=== PATIENT | male | born 1955 | race Caucasian/White ===

== ENCOUNTER 2024-12-10 14:49 | Inpatient (IN) ==
--- NOTE | 2024-12-10 15:07 | Emergency Department Note ---
Impression & Plan Acute appendicitis Admission ED Provider Note HPI: History obtained from patient. The patient is a 69-year-old gentleman with history of GERD, type 2 diabetes, chronic kidney disease, hypertension, hyperlipidemia, presents the emergency department today with chief complaint right-sided abdominal pain. Patient states he has had this pain for the past day. Patient states he has also had nausea but he denies any vomiting. On arrival here to the ED the patient is mildly hypertensive but otherwise hemodynamically stable, he otherwise appears to be in no acute distress. Patient denies any chest pain or shortness of breath. ROS: - Per HPI Differential Diagnosis: Acute cholecystitis, choledocholithiasis, kidney stone, pyelonephritis, diverticulitis, acute appendicitis, viral gastroenteritis, amongst other potential pathologies. *Outpatient medications and allergy history reviewed. 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 Lab work shows a mild leukocytosis of 15.3, hemoglobin is stable at 18.3, platelet count is normal, CMP does not show any evidence of any critical findings. Urinalysis shows 2+ ketones, no evidence of infection. CT imaging of the abdomen pelvis with IV contrast is suggestive of acute appendicitis without perforation or abscess. I was able to discuss the patient's presentation with on-call general surgery, Dr. Riley, as he was here in the emergency department. General surgery evaluated the patient and the patient was determined appropriate for urgent operative intervention. Patient was transported to the operating room in stable condition for further management. Consultants/Discussions held with other healthcare providers: - General Surgery, Dr. Riley Disposition discussion held by myself with: - Patient and at bedside Diagnosis: 1. Acute appendicitis 2. Abdominal pain, acute 3. Leukocytosis, acute Disposition: Admission Jay Jay Garsia DO Emergency Medicine Past Med/Surg History Problem List (Updated 12/10/24 @ 17:53 by Jay Jay Garsia DO) Acute appendicitis (Acute) Mild cognitive impairment Peripheral neuropathy Type 2 diabetes with nephropathy Chronic low back pain GERD (gastroesophageal reflux disease) Hearing difficulty Chronic kidney disease Degenerative disc disease, lumbar Degenerative disc disease, cervical HLD (hyperlipidemia) HTN (hypertension) Medical History Stomach ulcer Kidney stones Carpal tunnel syndrome Surgical History H/O neck surgery History of hip replacement right H/O arthroscopy of shoulder H/O carpal tunnel repair Hx of tonsillectomy H/O hernia repair 1954 Family History Father Myocardial infarction Pancreatic cancer Diabetes Heart disease Hypertension Uncle Alcohol abuse Aunt Alcohol abuse Mother Diabetes Heart disease Hypertension Kidney disease Lung disease Sister Diabetes Gall bladder disease History of parathyroid surgery Denies family history of Ovarian cancer Prostate cancer Breast cancer Colorectal cancer Social History Smoking Status: Never smoker Second Hand Exposure: No; Do You Dip or Chew Tobacco: No; Hx Alcohol Use: Yes Hx Substance Use: No Preferred Language: Brazilian Visual Impairment: No Limitations Hearing Ability: Use of Hearing Aid Beliefs That Will Affect Care: None marital status: Current Living Situation: Spouse current occupational status: retired Feels Safe at Home: Yes Diet: low carbohydrate during the past year weight has: remained stable Physical Activity Frequency: Other Physical Activity Frequency Comment: limited due to physical condition Seatbelt Use: always Sunscreen Use: No Allergies Allergies Allergy/AdvReac Type Severity Reaction Status Date / Time codeine Allergy Verified 11/18/24 09:57 cyclobenzaprine Allergy Verified 11/18/24 09:57 erythromycin base Allergy Verified 11/18/24 09:57 Sulfa (Sulfonamide Allergy Verified 11/18/24 09:57 Antibiotics) NSAIDS (Non-Steroidal AdvReac Verified 11/18/24 09:57 Anti-Inflamma tramadol Allergy Uncoded 11/18/24 09:57 Home Meds Home Medications Medication Instructions Recorded Confirmed aspirin 81 mg tablet,delayed 81 mg PO DAILY 04/30/24 12/10/24 release magnesium citrate 1,800 - 2,200 mg PO DAILY PRN when 04/30/24 12/10/24 low multivitamin 1 tab PO DAILY 04/30/24 12/10/24 cholecalciferol (vitamin D3) 50 100 mcg PO DAILY 11/18/24 12/10/24 mcg (2,000 unit) capsule insulin aspart U-100 100 unit/mL 10 unit subcut TID 11/18/24 12/10/24 (3 mL) subcutaneous pen insulin degludec 100 unit/mL (3 10 unit subcut DAILY 11/18/24 12/10/24 mL) subcutaneous pen (Tresiba FlexTouch U-100 insulin) Previous Rx's Medication Instructions Recorded atorvastatin 40 mg tablet 40 mg PO DAILY #90 tabs 04/30/24 glimepiride 4 mg tablet 4 mg PO DAILY #90 tabs 04/30/24 losartan 100 mg tablet 100 mg PO DAILY #90 tabs 04/30/24 omeprazole 40 mg capsule,delayed 40 mg PO DAILY #90 caps 04/30/24 release oxycodone-acetaminophen 5 mg-325 1 tab PO Q12H PRN pain #60 tabs 05/20/24 mg tablet empagliflozin 10 mg tablet 10 mg PO DAILY #30 tabs 10/21/24 (Jardiance) duloxetine 60 mg capsule,delayed 60 mg PO DAILY #90 caps 11/18/24 release Results & Data (ED) Vital Signs Vital Signs - 24 hr 12/10/24 14:51 12/10/24 16:54 12/10/24 17:16 Temperature 36.1 C L 37.1 C Temperature Source Temporal Artery Scan Oral Pulse Rate 96 H 105 H Pulse Rate [Apical] 103 H Pulse Rhythm [Apical] Regular Pulse Strength [Apical] Normal Respiratory Rate 20 20 23 Respiratory Effort / Characteristics Non-Labored Spontaneous Non-Labored Spontaneous Respiratory Depth Normal Normal Respiratory Pattern Regular Regular Blood Pressure 148/91 H 160/107 H Blood Pressure [Left Arm] 177/112 H Blood Pressure Mean 110 Blood Pressure Mean [Left Arm] 133 Blood Pressure Position [Left Arm] Semi-fowlers Pulse Oximetry 99 98 98 Oxygen Delivery Method Room Air Room Air Room Air Sepsis Recent Fever Within 48 Hours No Sepsis New/Unexplained Change in Mental Status N/A Sepsis Action Taken by Nursing No Action Required Laboratory Data 12/10/24 15:06 12/10/24 15:06 Lab Results 12/10/24 12/10/24 12/10/24 Range/Units 15:06 15:10 17:29 WBC 15.33 H (4.8-10.8) K/ul RBC 5.77 (4.70-6.10) M/uL Hgb 18.3 H (14.0-18.0) g/dl Hct 52.5 H (42.0-52.0) % MCV 91.0 (80.0-100.0) fL MCH 31.7 (25.0-34.0) pg MCHC 34.9 (32.0-36.0) g/dL RDW Std Deviation 42.6 (36.4-46.3) fL RDW Coeff of Sandra 12.7 (11.5-14.5) % Plt Count 284 (130-400) K/uL MPV 8.9 L (9.4-12.4) fL Immature Gran % (Auto) 0.6 % Neut % (Auto) 79.0 % Lymph % (Auto) 10.3 % [place] % (Auto) 8.6 % Eos % (Auto) 1.0 % Baso % (Auto) 0.5 % Neut # (Auto) 12.11 H (1.40-6.50) K/uL Lymph # (Auto) 1.58 (1.20-3.40) K/uL [place] # (Auto) 1.32 H (0.11-0.59) K/uL Eos # (Auto) 0.15 (0.00-0.50) K/uL Baso # (Auto) 0.08 (0.00-0.20) K/uL Immature Gran # (Auto) 0.09 (0.01-0.20) K/uL Sodium 138 (136-145) mmol/L Potassium 4.0 (3.5-5.1) mmol/L Chloride 99 (98-107) mmol/L Carbon Dioxide 28 (21-32) mmol/L Anion Gap 11 (3-11) BUN 20 (6-23) mg/dl Creatinine 1.18 (0.6-1.4) mg/dl Est Cr Clr Drug Dosing Not Reportable eGFR 66.38 BUN/Creatinine Ratio 16.9 (10-20) Glucose 85 (70-99(Fasting)) mg/dl POC Glucose 78 89 (70-99) mg/dl Calcium 10.5 H (8.6-10.3) mg/dl Total Bilirubin 1.0 (0.2-1.0) mg/dl AST 28 (13-39) U/L ALT 23 (7-52) U/L Alkaline Phosphatase 71 (34-104) U/L Total Protein 8.7 H (6.0-8.3) gm/dl Albumin 5.3 H (3.4-5.0) gm/dl Globulin 3.4 (2.5-4.0) gm/dl Albumin/Globulin Ratio 1.6 (0.9-2) Lipase 20 (11-82) U/L Urine Color Yellow Urine Appearance Clear (Clear) Urine pH >= 9.0 H (4.5-7.5) Ur Specific [place] 1.029 (1.000-1.030) Urine Protein 1+ H (Negative) Urine Glucose (UA) 1+ H (Negative) Urine Ketones 2+ H (Negative) Urine Blood Negative (Negative) Urine Nitrite Negative (Negative) Urine Bilirubin Negative (Negative) Urine Urobilinogen Negative (Negative) Ur Leukocyte Esterase Negative (Negative) Urine WBC (Auto) 0-5 (0-5) /hpf Urine RBC (Auto) 0-2 (0-2) /hpf U Hyaline Cast (Auto) 0-2 (0-2) /lpf U Epithel Cells (Auto) 0-2 (0-2) /hpf Urine Bacteria (Auto) None Seen (None Seen) Administered Medications Discontinued Medications Sodium Chloride (Nss) 500 mls @ 999 mls/hr IV .Q31M ONE Stop: 12/10/24 15:35 Last Infusion: 12/10/24 15:58 Dose: Infused Documented By: Admin: 12/10/24 15:18 Dose: 999 mls/hr Documented By: AUSTYN Piperacillin Sod/Tazobactam Sod (Zosyn) 4.5 gm in 100 mls @ 200 mls/hr IV NOW ONE; Protocol Stop: 12/10/24 16:48 Last Admin: 12/10/24 17:14 Dose: 200 mls/hr Documented By: RAMILA Ioversol (Optiray 320 100ml) 93 ml IV ONCE ONE Stop: 12/10/24 16:07 Last Admin: 12/10/24 16:06 Dose: 93 ml Documented By: IAM Morphine Sulfate (Morphine Sulfate 4 Mg/Ml 1 Ml Carp\Vial) 4 mg IV NOW STA Stop: 12/10/24 15:13 Last Admin: 12/10/24 15:20 Dose: 4 mg Documented By: AUSTYN Ondansetron HCl (Ondansetron Inj 2 Mg/Ml 2 Ml Vial) 4 mg IV NOW STA Stop: 12/10/24 15:13 Last Admin: 12/10/24 15:19 Dose: 4 mg Documented By: AUSTYN Imaging Data Radiologist's Impression: Abdomen/Pelvis CT 12/10/24 15:04 EXAMINATION: CT of the abdomen and pelvis performed after the administration of IV contrast TECHNIQUE: Helical CT images from the lung bases through the symphysis pubis were obtained with contrast. Coronal and sagittal reformatted images were generated at a workstation for further assessment. Dose reduction techniques were achieved by using automatic exposure control and/or adjustment of mA and/or kV according to patient size and/or use of iterative reconstruction technique. COMPARISON: None HISTORY: Abdominal pain FINDINGS: Lower chest: No consolidation. No pleural effusion or pneumothorax. Liver: No suspicious liver lesions. Portal veins appear patent. Gallbladder: No gallstones. No evidence of acute cholecystitis. Spleen: Normal size. Pancreas: No suspicious pancreatic lesions. The pancreatic duct is not dilated. Adrenal glands: No adrenal nodules. Kidneys: No hydronephrosis or obstructing renal stones. Bladder / Pelvic organs: Unremarkable. Bowel: No bowel obstruction. No abnormal bowel wall thickening. The appendix is significantly dilated, measuring 16 mm in diameter, and is fluid-filled, containing numerous calcified prominent stones. Mild surrounding inflammatory fat stranding and free fluid. No focal fluid collection or abscess. No free air. There is reactive enteritis, with fluid throughout the large bowel and distal small bowel loops.. Lymph nodes: No retroperitoneal, mesenteric, or pelvic lymphadenopathy. Peritoneum / Retroperitoneum: No free fluid or air within the abdomen. Vessels: No infrarenal aortic aneurysm. Bones and soft tissues: No suspicious lesion in the bones. IMPRESSION: Acute uncomplicated appendicitis, containing numerous appendicoliths. No free air or abscess. Electronically signed by Moo Tobar 12-10-2024 4:16 PM Discharge Plan Visit Data Chief Complaint: Abdominal Pain Stated Complaint: ABD PAIN, RT FLANK PAIN ED Provider: Jay Jay Garsia Discharge Problem: Acute appendicitis Patient Disposition: Being Evaluated by Surgeon Condition: Fair Discharge Instructions Interventions: ED Discharge Assessment Last Done: 12/10/24 16:54
[2024-12-10] MEDS: SODIUM CHLORIDE 0.9% 500 ML IV ONE (15:18)
[2024-12-10] MEDS: ONDANSETRON INJ 2 MG/ML 2 ML VIAL IV STA (15:19)
[2024-12-10] MEDS: MoRPHine SULFATE 4 MG/ML 1 ML CARP\\VIAL IV STA (15:20)
[2024-12-10 15:27] LABS: Appearance Urine Clear (Clear); Bacteria Urine Automated None Seen (None Seen); Bilirubin Urine Negative (Negative); Blood Urine Negative (Negative); Cast Urine Automated 0-2 /lpf (0-2); Color Urine Yellow; Epithelial Cell Urine Auto 0-2 /hpf (0-2); Glucose Urine UA 1+ (Negative); Ketones Urine 2+ (Negative); Leukocyte Esterase Urine Negative (Negative); Nitrite Urine Negative (Negative); Protein Urine 1+ (Negative); RBC Urine Automated 0-2 /hpf (0-2); Specific Gravity Urine 1.029 (1.000-1.030); Urobilinogen Urine Negative (Negative); WBC Urine Automated 0-5 /hpf (0-5); pH Urine >= 9.0 (4.5-7.5)
[2024-12-10 15:41] LABS: Basophils # (auto) 0.08 K/uL (0.00-0.20); Basophils % (auto) 0.5 %; Eosinophils # (auto) 0.15 K/uL (0.00-0.50); Hematocrit (blood only) 52.5 % (42.0-52.0); Hemoglobin 18.3 g/dl (14.0-18.0); Immature Granulocytes # (auto) 0.09 K/uL (0.01-0.20); Immature Granulocytes % (auto) 0.6 %; Lymphocytes # (auto) 1.58 K/uL (1.20-3.40); Lymphocytes % (auto) 10.3 %; Mean Corpuscular Hemoglobin 31.7 pg (25.0-34.0); Mean Corpuscular Hgb Conc 34.9 g/dL (32.0-36.0); Mean Platelet Volume 8.9 fL (9.4-12.4); Monocytes # (auto) 1.32 K/uL (0.11-0.59); Monocytes % (auto) 8.6 %; Neutrophils # (auto) 12.11 K/uL (1.40-6.50); Platelet Count 284 K/uL (130-400); RDW Coefficient of Variation 12.7 % (11.5-14.5); RDW Standard Deviation 42.6 fL (36.4-46.3); Red Blood Count 5.77 M/uL (4.70-6.10); White Blood Count 15.33 K/ul (4.8-10.8)
[2024-12-10 15:45] LABS: Alanine Aminotransferase 23 U/L (7-52); Albumin Globulin Ratio 1.6 (0.9-2); Albumin Level 5.3 gm/dl (3.4-5.0); Alkaline Phosphatase 71 U/L (34-104); Anion Gap 11 (3-11); Aspartate Aminotransferase 28 U/L (13-39); BUN Creatinine Ratio 16.9 (10-20); Blood Urea Nitrogen 20 mg/dl (6-23); Calcium 10.5 mg/dl (8.6-10.3); Carbon Dioxide 28 mmol/L (21-32); Chloride 99 mmol/L (98-107); Globulin 3.4 gm/dl (2.5-4.0); Glucose 85 mg/dl (70-99(Fasting)); Lipase 20 U/L (11-82); Sodium 138 mmol/L (136-145); Total Protein 8.7 gm/dl (6.0-8.3)
[2024-12-10] MEDS: OPTIRAY 320 100ml IV ONE (16:06)
--- NOTE | 2024-12-10 16:16 | CT Scan Report ---
EXAMINATION: CT of the abdomen and pelvis performed after the administration of IV contrast TECHNIQUE: Helical CT images from the lung bases through the symphysis pubis were obtained with contrast. Coronal and sagittal reformatted images were generated at a workstation for further assessment. Dose reduction techniques were achieved by using automatic exposure control and/or adjustment of mA and/or kV according to patient size and/or use of iterative reconstruction technique. COMPARISON: None HISTORY: Abdominal pain FINDINGS: Lower chest: No consolidation. No pleural effusion or pneumothorax. Liver: No suspicious liver lesions. Portal veins appear patent. Gallbladder: No gallstones. No evidence of acute cholecystitis. Spleen: Normal size. Pancreas: No suspicious pancreatic lesions. The pancreatic duct is not dilated. Adrenal glands: No adrenal nodules. Kidneys: No hydronephrosis or obstructing renal stones. Bladder / Pelvic organs: Unremarkable. Bowel: No bowel obstruction. No abnormal bowel wall thickening. The appendix is significantly dilated, measuring 16 mm in diameter, and is fluid-filled, containing numerous calcified prominent stones. Mild surrounding inflammatory fat stranding and free fluid. No focal fluid collection or abscess. No free air. There is reactive enteritis, with fluid throughout the large bowel and distal small bowel loops.. Lymph nodes: No retroperitoneal, mesenteric, or pelvic lymphadenopathy. Peritoneum / Retroperitoneum: No free fluid or air within the abdomen. Vessels: No infrarenal aortic aneurysm. Bones and soft tissues: No suspicious lesion in the bones. IMPRESSION: Acute uncomplicated appendicitis, containing numerous appendicoliths. No free air or abscess. Electronically signed by Moo Tobar 12-10-2024 4:16 PM
--- NOTE | 2024-12-10 16:46 | History & Physical Report ---
Date of Service December 10, 2024 Assessment & Plan (1) Acute appendicitis: Plan: This is a 69y M with a PMH of HTN, HLD, DM2, mild cognitive impairment CKD, who presents to the [facility] ED on 12/10/24 with complaints of abdominal pain. Patient states it started last night around 7-8pm and it was generalized. He thought it was related to indigestion. Unfortunately his abdominal pain continued to worsen and was associated with nausea and became worse on the right lower side. He came into the ER today for further evaluation. A CT a/p was obtained that revealed uncomplicated appendicitis, containing numerous appendicoliths. No free air or abscess. He reports a hernia repair when he was 10 weeks old which sounds like bilateral inguinal hernia repair. No abdominal surgery since then. He has chronic back pain. He denies CP/SOB, fevers/chills, no emesis. Had some lighthea dedness on arrival he wasn't sure if related to dehydration or low sugars. Last ate a small amount of ramen noodles around 10am. In the ER labs show WBC 15, Hbg 18, Cr 1.1. Vital signs are stable. On exam patient in bed. Abdomen is soft, non distended with tenderness to palpation across the lower abdomen worse in the RLQ. History, exam, imaging consistent with acute appendicitis. Options discussed with the patient and opting to proceed with surgical intervention. Dr. Riley has obtained consent and we will proceed with lap appendectomy today. Remain NPO with IVF and start pre-op abx. As above. Clinical history and workup consistent with acute appendicitis. We discussed his options as well as risks of the procedure which would include bleeding, infection, injury to another organ, DVT, PE, MN, CVA etc. Following a discussion I answered all of his questions. We will proceed this evening with laparoscopic appendectomy. History of Present Illness Primary Care Provider: Channing Pino, This is a 69y M with a PMH of HTN, HLD, DM2, mild cognitive impairment CKD, who presents to the [facility] ED on 12/10/24 with complaints of abdominal pain. Patient states it started last night around 7-8pm and it was generalized. He thought it was related to indigestion. Unfortunatelyhis abdominal pain continued to worsen and was associated with nausea and became worse on the right lower side. He came into the ER today for further evaluation. A CT a/p was obtained that revealed uncomplicated appendicitis, containing numerous appendicoliths. No free air or abscess. He reports a hernia repair when he was 10 weeks old which sounds like bilateral inguinal hernia repair. No abdominal surgery since then. He has chronic back pain. He denies CP/SOB, fevers/chills, no emesis. Had some lightheadedness on arrival he wasn't sure if related to dehydration or low sugars. Last ate a small amount of ramen noodles around 10am. Allergies Allergy/AdvReac Type Severity Reaction Status Date / Time codeine Allergy Verified 11/18/24 09:57 cyclobenzaprine Allergy Verified 11/18/24 09:57 erythromycin base Allergy Verified 11/18/24 09:57 Sulfa (Sulfonamide Allergy Verified 11/18/24 09:57 Antibiotics) NSAIDS (Non-Steroidal AdvReac Verified 11/18/24 09:57 Anti-Inflamma tramadol Allergy Uncoded 11/18/24 09:57 Home Medications Medication Instructions Recorded Confirmed Type aspirin 81 mg tablet,delayed 81 mg PO DAILY 04/30/24 12/10/24 History release atorvastatin 40 mg tablet 40 mg PO DAILY #90 tabs 04/30/24 12/10/24 Rx glimepiride 4 mg tablet 4 mg PO DAILY #90 tabs 04/30/24 12/10/24 Rx losartan 100 mg tablet 100 mg PO DAILY #90 tabs 04/30/24 12/10/24 Rx magnesium citrate 1,800 - 2,200 mg PO DAILY PRN when 04/30/24 12/10/24 History low multivitamin 1 tab PO DAILY 04/30/24 12/10/24 History omeprazole 40 mg capsule,delayed 40 mg PO DAILY #90 caps 04/30/24 12/10/24 Rx release oxycodone-acetaminophen 5 mg-325 1 tab PO Q12H PRN pain #60 tabs 05/20/24 12/10/24 Rx mg tablet empagliflozin 10 mg tablet 10 mg PO DAILY #30 tabs 10/21/24 12/10/24 Rx (Jardiance) cholecalciferol (vitamin D3) 50 100 mcg PO DAILY 11/18/24 12/10/24 History mcg (2,000 unit) capsule duloxetine 60 mg capsule,delayed 60 mg PO DAILY #90 caps 11/18/24 12/10/24 Rx release insulin aspart U-100 100 unit/mL 10 unit subcut TID 11/18/24 12/10/24 History (3 mL) subcutaneous pen insulin degludec 100 unit/mL (3 10 unit subcut DAILY 11/18/24 12/10/24 History mL) subcutaneous pen (Tresiba FlexTouch U-100 insulin) Past Med/Surg History Problem List (Updated 12/10/24 @ 16:53 by Sara Whiting PA-C) Acute appendicitis Mild cognitive impairment Peripheral neuropathy Type 2 diabetes with nephropathy Chronic low back pain GERD (gastroesophageal reflux disease) Hearing difficulty Chronic kidney disease Degenerative disc disease, lumbar Degenerative disc disease, cervical HLD (hyperlipidemia) HTN (hypertension) Medical History Stomach ulcer Kidney stones Carpal tunnel syndrome Surgical History H/O neck surgery History of hip replacement right H/O arthroscopy of shoulder H/O carpal tunnel repair Hx of tonsillectomy H/O hernia repair 1954 Family History Father Myocardial infarction Pancreatic cancer Diabetes Heart disease Hypertension Uncle Alcohol abuse Aunt Alcohol abuse Mother Diabetes Heart disease Hypertension Kidney disease Lung disease Sister Diabetes Gall bladder disease History of parathyroid surgery Denies family history of Ovarian cancer Prostate cancer Breast cancer Colorectal cancer Social History Smoking Status: Never smoker Second Hand Exposure: No; Do You Dip or Chew Tobacco: No; Hx Alcohol Use: Yes Hx Substance Use: No Preferred Language: Bulgarian Visual Impairment: No Limitations Hearing Ability: Use of Hearing Aid Beliefs That Will Affect Care: None marital status: Current Living Situation: Spouse current occupational status: retired Feels Safe at Home: Yes Diet: low carbohydrate during the past year weight has: remained stable Physical Activity Frequency: Other Physical Activity Frequency Comment: limited due to physical condition Seatbelt Use: always Sunscreen Use: No Review of Systems Constitutional: no fever and no chills Respiratory: no dyspnea Cardiovascular: no chest pain Gastrointestinal: + abdominal pain, + bloating, + nausea a nd + diarrhea/loose stools (patient's baseline); no vomiting Genitourinary: no problem reported Physical Exam Physical Exam: awake, no distress Respiratory: normal respiratory effort Gastrointestinal (Abdomen): Inspection/Auscultation: abdomen not distended Percussion/Palpation: + abdomen tender (ttp across lower abdomen R >L) and abdomen soft Results & Data Results & Data Vital Signs (Past 12 Hours) Vital Signs Temp Pulse Resp BP Pulse Ox O2 Del Method 12/10/24 14:51 97.0 F L 96 H 20 148/91 H 99 Room Air Diagnostic Findings XAMINATION: CT of the abdomen and pelvis performed after the administration of IV contrast TECHNIQUE: Helical CT images from the lung bases through the symphysis pubis were obtained with contrast. Coronal and sagittal reformatted images were generated at a workstation for further assessment. Dose reduction techniques were achieved by using automatic exposure control and/or adjustment of mA and/or kV according to patient size and/or use of iterative reconstruction technique. COMPARISON: None HISTORY: Abdominal pain FINDINGS: Lower chest: No consolidation. No pleural effusion or pneumothorax. Liver: No suspicious liver lesions. Portal veins appear patent. Gallbladder: No gallstones. No evidence of acute cholecystitis. Spleen: Normal size. Pancreas: No suspicious pancreatic lesions. The pancreatic duct is not dilated. Adrenal glands: No adrenal nodules. Kidneys: No hydronephrosis or obstructing renal stones. Bladder / Pelvic organs: Unremarkable. Bowel: No bowel obstruction. No abnormal bowel wall thickening. The appendix is significantly dilated, measuring 16 mm in diameter, and is fluid-filled, containing numerous calcified prominent stones. Mild surrounding inflammatory fat stranding and free fluid. No focal fluid collection or abscess. No free air. There is reactive enteritis, with fluid throughout the large bowel and distal small bowel loops.. Lymph nodes: No retroperitoneal, mesenteric, or pelvic lymphadenopathy. Peritoneum / Retroperitoneum: No free fluid or air within the abdomen. Vessels: No infrarenal aortic aneurysm. Bones and soft tissues: No suspicious lesion in the bones. IMPRESSION: Acute uncomplicated appendicitis, containing numerous appendicoliths. No free air or abscess. Electronically signed by Moo Tobar 12-10-2024 4:16 PM PG Care Time/CCT Total # of Minutes Spent Total Time Spent with Patient: Total time spent is greater than 50% in coordination of care (as documented) at patient's floor/unit and/or counseling patient: Coding Level of Care Code 87062 INT INP/OBS CARE MIN Diagnoses Acute appendicitis K35.80
[2024-12-10] MEDS: PIPERACILLIN/TAZOBACTAM 4.5 GM/100 ML BAG IV ONE (17:14)
--- NOTE | 2024-12-10 17:49 | Anesthesiology Consultation ---
Date of Service December 10, 2024 Assessment & Plan Chart Review Chart Review: Acceptable Risk for Surgery and Patient NOT seen in Pre Admission Testing Consults Requested none ASA [id number] Proposed Anesthesia Anesthesia Type: General Risk / Benefits Reviewed With: PT / POA / Parent / Guardian, Accepts Plan and Informed Consent Obtained History Surgery Operation Date: 12/10/24 14:00 Proposed Procedures p Laparoscopic Appendectomy - Truman Riley, DO Height/Weight Height: 5 ft 8 in Allergies Allergy/AdvReac Type Severity Reaction Status Date / Time codeine Allergy Verified 11/18/24 09:57 cyclobenzaprine Allergy Verified 11/18/24 09:57 erythromycin base Allergy Verified 11/18/24 09:57 Sulfa (Sulfonamide Allergy Verified 11/18/24 09:57 Antibiotics) NSAIDS (Non-Steroidal AdvReac Verified 11/18/24 09:57 Anti-Inflamma tramadol Allergy Uncoded 11/18/24 09:57 Medications Home Medications Medication Instructions Recorded Confirmed Last Taken aspirin 81 mg tablet,delayed 81 mg PO DAILY 04/30/24 12/10/24 Unknown release atorvastatin 40 mg tablet 40 mg PO DAILY #90 tabs 04/30/24 12/10/24 Unknown glimepiride 4 mg tablet 4 mg PO DAILY #90 tabs 04/30/24 12/10/24 Unknown losartan 100 mg tablet 100 mg PO DAILY #90 tabs 04/30/24 12/10/24 Unknown magnesium citrate 1,800 - 2,200 mg PO DAILY PRN when 04/30/24 12/10/24 Unknown low multivitamin 1 tab PO DAILY 04/30/24 12/10/24 Unknown omeprazole 40 mg capsule,delayed 40 mg PO DAILY #90 caps 04/30/24 12/10/24 Unknown release oxycodone-acetaminophen 5 mg-325 1 tab PO Q12H PRN pain #60 tabs 05/20/24 12/10/24 Unknown mg tablet empagliflozin 10 mg tablet 10 mg PO DAILY #30 tabs 10/21/24 12/10/24 Unknown (Jardiance) cholecalciferol (vitamin D3) 50 100 mcg PO DAILY 11/18/24 12/10/24 Unknown mcg (2,000 unit) capsule duloxetine 60 mg capsule,delayed 60 mg PO DAILY #90 caps 11/18/24 12/10/24 Unknown release insulin aspart U-100 100 unit/mL 10 unit subcut TID 11/18/24 12/10/24 Unknown (3 mL) subcutaneous pen insulin degludec 100 unit/mL (3 10 unit subcut DAILY 11/18/24 12/10/24 Unknown mL) subcutaneous pen (Tresiba FlexTouch U-100 insulin) NPO Date Last Intake of Fluids: 12/10/24 Time Last Intake of Fluids: 11:00 Date Last Intake of Solids: 12/10/24 Time Last Intake of Solids: 10:00 Past Medical History Medical History Stomach ulcer Kidney stones Carpal tunnel syndrome Exercise / Class Metabolic Activity II 4-5 Yardwork/Stairs/Walk up hill Past Family History Family History Father Myocardial infarction Pancreatic cancer Diabetes Heart disease Hypertension Uncle Alcohol abuse Aunt Alcohol abuse Mother Diabetes Heart disease Hypertension Kidney disease Lung disease Sister Diabetes Gall bladder disease History of parathyroid surgery Denies family history of Ovarian cancer Prostate cancer Breast cancer Colorectal cancer Past Surgical History Surgical History H/O neck surgery History of hip replacement right H/O arthroscopy of shoulder H/O carpal tunnel repair Hx of tonsillectomy H/O hernia repair 1954 Past Anesthesia History No Hx of Anesthesia Complications and No Family Hx of Anesthesia Complications History of PONV No Hx of PONV and No Hx of Motion Sickness Social History Smoking Status: Never smoker Do You Dip or Chew Tobacco: No Hx Alcohol Use: Yes Hx Substance Use: No Physical Exam Vital Signs Last Vital Signs Temp 37.1 C 12/10/24 17:16 Pulse 103 H 12/10/24 17:16 Resp 23 12/10/24 17:16 BP 177/112 H 12/10/24 17:16 Pulse Ox 98 12/10/24 17:16 O2 Del Method Room Air 12/10/24 17:16 ENMT Mouth: no dentition abnormality Thyromental Distance: > or= 3.5 Finger Breadths Mallampati Class: II Neck normal visual inspection Respiratory normal respiratory effort Auscultation: lungs clear to auscultation bilaterally Cardiovascular Rate/Rhythm: regular rate and regular rhythm Psychiatric Orientation: alert Testing Laboratory Results 12/10/24 15:06 12/10/24 15:06 Urine Color Yellow 12/10/24 15:06 Urine Appearance Clear (Clear) 12/10/24 15:06 Urine pH >= 9.0 (4.5-7.5) H 12/10/24 15:06 Ur Specific [place] 1.029 (1.000-1.030) 12/10/24 15:06 Urine Protein 1+ (Negative) H 12/10/24 15:06 Urine Glucose (UA) 1+ (Negative) H 12/10/24 15:06 Urine Ketones 2+ (Negative) H 12/10/24 15:06 Urine Nitrite Negative (Negative) 12/10/24 15:06 Ur Leukocyte Esterase Negative (Negative) 12/10/24 15:06 Urine WBC (Auto) 0-5 /hpf (0-5) 12/10/24 15:06 Urine RBC (Auto) 0-2 /hpf (0-2) 12/10/24 15:06 U Hyaline Cast (Auto) 0-2 /lpf (0-2) 12/10/24 15:06 U Epithel Cells (Auto) 0-2 /hpf (0-2) 12/10/24 15:06 Urine Bacteria (Auto) None Seen (None Seen) 12/10/24 15:06 12/10/24 12/10/24 17:29 15:10 POC Glucose 89 78
[2024-12-10] MEDS ORDERED: ONDANSETRON INJ 2 MG/ML 2 ML VIAL ONE (17:53)
[2024-12-10] MEDS ORDERED: LIDOCAINE 2% 2 ML VIAL/AMP(20MG/ML) INFIL ONE (17:53)
[2024-12-10] MEDS ORDERED: SUCCINYLCHOLINE CHLORIDE 20 MG/ML 10 ML VIAL IV ONE (17:53)
[2024-12-10] MEDS ORDERED: PROPOFOL IV EMULSION 10 MG/ML 20 ML VIAL IV ONE (17:53)
[2024-12-10] MEDS ORDERED: ROCURONIUM BROMIDE 10 MG/ML 5 ML VIAL IV ONE (17:53)
[2024-12-10] MEDS ORDERED: fentaNYL citrate PF 100 MCG/2 ML VIAL ONE ×2 (17:53→18:32)
[2024-12-10] MEDS ORDERED: DROPERIDOL 5 MG/2 ML VIAL ONE (18:04)
[2024-12-10] MEDS ORDERED: DEXAMETHASONE SOD INJ 4 MG/ML VIAL ONE (18:15)
[2024-12-10] MEDS ORDERED: fentaNYL citrate PF 100 MCG/2 ML VIAL IV PRN (18:25)
[2024-12-10] MEDS ORDERED: PROMETHAZINE HCL 6.25 MG in SODIUM CHLORIDE 0.9% 50 ML IV PRN (18:25)
[2024-12-10] MEDS ORDERED: ONDANSETRON INJ 2 MG/ML 2 ML VIAL IV PRN ×2 (18:25→20:35)
[2024-12-10] MEDS ORDERED: ATROPINE SULFATE 0.1 MG/ML 10ML SYR IV PRN (18:25)
[2024-12-10] MEDS ORDERED: ePHEDrine sulfate 50 MG/ML AMP IV PRN (18:25)
[2024-12-10] MEDS ORDERED: SUGAMMADEX SODIUM 200 MG/2 ML VIAL IV ONE ×2 (18:53→18:54)
[2024-12-10] MEDS: BUPIVACAINE/EPINEPHRINE 0.5% MPF 1:200,000 30 ML VIAL ONE (18:56)
--- NOTE | 2024-12-10 19:19 | Operative Report ---
PG Post Operative Report Pre & Post Diagnosis Operation Date: 12/10/24 14:00 Pre-Op Diagnosis: Acute appendicitis Post-Op Diagnosis: Acute appendicitis I identified the patient and participated in the time-out.: Yes Procedure Operation Date: 12/10/24 14:00 Actual Procedures p Laparoscopic Appendectomy(Not Applicable) - Truman Riley DO Surgeon Truman Riley DO Windsurfing Instructor n/a Estimated Blood Loss 20 Findings Consistent with Post-Op Diagnosis Specimens appendix Description of Procedure After informed consent was obtained the patient was taken to the operating room and placed in supine position. After successful intubation a Ansari catheter was placed and the left arm was tucked. I began by making a periumbilical incision with an 11 blade scalpel and carried this down through the soft tissue using electrocautery. The anterior rectus fascia was opened using electrocautery and 2 #0 Vicryl stay sutures were placed. The peritoneum was elevated using hemostats and incised under direct vision using a Metzenbaum scissor. A finger sweep was performed. A 12 mm Thomas trocar was placed and the abdomen was insufflated to 18 mmHg. A laparoscope was inserted and the abdomen was examined in 360. A suprapubic 5 mm port and a left lower quadrant 12 mm port were placed under direct vision. The patient was air planed to the left as well as placed in a slight Trendelenburg position. We began by looking in the right lower quadrant. We were able to readily identify the appendix and it was extremely enlarged and grossly inflamed. It had not perforated. There is a small amount of purulent fluid in the right lower quadrant and the pelvis. We immediately irrigated and suctioned this out. I was able to use primarily blunt dissection to pull the appendix away from the right lower quadrant sidewall. Next I made a window in the mesentery of the appendix using a [place] dissector. I was then able to use a JENNIFER brown cartridge stapler to transect first the mesentery of the appendix. Next I used a JENNIFER purple cartridge stapler to transect the appendix itself at its base with the cecum. It was then placed into an Endo Catch bag and removed from the camera port site. We thoroughly irrigated the right lower quadrant as well as the pelvis. There was adequate hemostasis. I ran the small bowel backwards from the terminal ileum for about 6 feet all of which was normal. All the peritoneal surfaces were normal. Small/ large bowel, liver, stomach etc. all appeared grossly normal. We did a final irrigation and then removed all the trochars and desufflated the abdomen. The fascia of the camera port was closed using 0 Vicryl in [id number] fashion. Wounds were all irrigated and closed using 4-0 Monocryl. Marcaine was injected around them for postoperative analgesia and skin glue used as a dressing. The patient was awakened extubated and transferred to recovery in stable condition. I attest to the content of the Intraoperative Record and any orders documented therein. Any exceptions are noted below.
--- NOTE | 2024-12-10 19:59 | Hospitalist Consultation ---
Date of Consultation December 10, 2024 Assessment & Plan (1) Acute appendicitis: (2) Type 2 diabetes with nephropathy: (3) HTN (hypertension): (4) HLD (hyperlipidemia): (5) GERD (gastroesophageal reflux disease): Plan 69-year-old male with history of diabetes, hypertension, hyperlipidemia, CKD and GERD presenting to [facility] with acute generalized abdominal pain. Found to have acute appendicitis status post laparoscopic cholecystectomy performed by Dr. Riley today 12/10/2024. Procedure well-tolerated, patient is doing well postoperatively. #Acute appendicitisstatus post laparoscopic appendectomy Patient is to be continued on Zosyn 4.5 g IV every 8 hours Patient to be continued on normal saline at 100 mL/h until tomorrow a.m. Pain control, bowel regimen, antiemetics per primary team #Diabetesoverall well-controlled. Last hemoglobin A1c on 11/11/2024 = 6.5. Patient is compliant with his home medicines to include glimepiride, Jardiance, Tresiba and insulin aspart. Blood sugar Will hold home regimen while inpatient Lantus 5 units twice daily with first dose to be given at 2100 today Insulin sliding scale with carb ratio = 20, correction factor #Tachycardiaheart rate mildly elevated to 150 bpm. Was regular on exam. Patient with no history of atrial fibrillation Obtain EKG Continue IV fluids, pain control, antibiotics for now #Hypertensionpatient with mildly elevated blood pressure in the postoperative period To continue home losartan 100 mg p.o. daily Continue to monitor #Hyperlipidemia Continue atorvastatin 40 mg p.o. daily #GERDpatient is on omeprazole 40 mg p.o. daily at home Protonix 40 mg p.o. daily while inpatient History of Present Illness Reason for Consultation: Glycemic management Attending Physician: Truman Riley, DO History of Present Illness Demetri Prakash is a pleasant 69-year-old male with history of diabetes on insulin therapy, hypertension, hyperlipidemia, CKD and GERD presenting to [facility] on 12/10/2024 complaining of abdominal pain which started on 12/09 around 1900. Patient found to have acute uncomplicated appendicitis with numerous appendicoliths. Patient went to the OR today 12/10/2024 and had a laparoscopic appendectomy performed under general anesthesia by Dr. Riley. surgery went well with no immediate complications identified, minimal estimated blood loss at 20 mL. Patient evaluated in recovery. Still somewhat somnolent from anesthesia but is able to answer questions appropriately and participate with exam. He has no complaints at this time. Reports that his blood sugars are fairly well-controlled with use of glimepiride, Jardiance, Tresiba and insulin aspart at home (Carb ratio 1:10). His PCP is in the process of trying to get him off glimepiride. He denies frequent hypoglycemia. Allergies Allergy/AdvReac Type Severity Reaction Status Date / Time cyclobenzaprine Allergy Unknown Verified 12/10/24 18:31 erythromycin base Allergy Hives Verified 12/10/24 18:31 Sulfa (Sulfonamide Allergy Hives Verified 12/10/24 18:31 Antibiotics) codeine AdvReac Dizziness Verified 12/10/24 18:31 NSAIDS (Non-Steroidal AdvReac Nausea Verified 12/10/24 18:31 Anti-Inflamma tramadol AdvReac Dizziness Verified 12/10/24 18:31 Home Medications Medication Instructions Recorded Confirmed Type aspirin 81 mg tablet,delayed 81 mg PO DAILY 04/30/24 12/10/24 History release atorvastatin 40 mg tablet 40 mg PO DAILY #90 tabs 04/30/24 12/10/24 Rx glimepiride 4 mg tablet 4 mg PO DAILY #90 tabs 04/30/24 12/10/24 Rx losartan 100 mg tablet 100 mg PO DAILY #90 tabs 04/30/24 12/10/24 Rx magnesium citrate 1,800 - 2,200 mg PO DAILY PRN when 04/30/24 12/10/24 History low multivitamin 1 tab PO DAILY 04/30/24 12/10/24 History omeprazole 40 mg capsule,delayed 40 mg PO DAILY #90 caps 04/30/24 12/10/24 Rx release oxycodone-acetaminophen 5 mg-325 1 tab PO Q12H PRN pain #60 tabs 05/20/24 12/10/24 Rx mg tablet empagliflozin 10 mg tablet 10 mg PO DAILY #30 tabs 10/21/24 12/10/24 Rx (Jardiance) cholecalciferol (vitamin D3) 50 100 mcg PO DAILY 11/18/24 12/10/24 History mcg (2,000 unit) capsule duloxetine 60 mg capsule,delayed 60 mg PO DAILY #90 caps 11/18/24 12/10/24 Rx release insulin aspart U-100 100 unit/mL 10 unit subcut TID 11/18/24 12/10/24 History (3 mL) subcutaneous pen insulin degludec 100 unit/mL (3 10 unit subcut DAILY 11/18/24 12/10/24 History mL) subcutaneous pen (Tresiba FlexTouch U-100 insulin) Patient History Medical History Stomach ulcer Kidney stones Carpal tunnel syndrome Surgical History H/O neck surgery History of hip replacement right H/O arthroscopy of shoulder H/O carpal tunnel repair Hx of tonsillectomy H/O hernia repair 1954 Family History Father Myocardial infarction Pancreatic cancer Diabetes Heart disease Hypertension Uncle Alcohol abuse Aunt Alcohol abuse Mother Diabetes Heart disease Hypertension Kidney disease Lung disease Sister Diabetes Gall bladder disease History of parathyroid surgery Denies family history of Ovarian cancer Prostate cancer Breast cancer Colorectal cancer Social History Smoking Status: Former smoker Tobacco Type: Smokeless Tobacco (Dip or Chew) Second Hand Exposure: Yes; Do You Dip or Chew Tobacco: Yes; Tobacco Cessation Education Requested by Patient: No Hx Alcohol Use: No Hx Substance Use: No Preferred Language: Tajik Communication Ability: Effective Visual Impairment: No Limitations Hearing Ability: Use of Hearing Aid Director Of Front Office Required: No Beliefs That Will Affect Care: None marital status: Current Living Situation: Spouse Current Living Situation Comment: with spouse current occupational status: retired Other Information That Helps Us Care for You: No Feels Safe at Home: Yes Safety Concerns: Feels Safe At This Time Diet: low carbohydrate during the past year weight has: remained stable Physical Activity Frequency: Other Physical Activity Frequency Comment: limited due to physical condition Seatbelt Use: always Sunscreen Use: No Assistive Devices: None Review of Systems Review of Systems: All systems reviewed & are unremarkable except as noted in HPI & below Physical Exam Physical Exam: General: patient resting comfortably, NAD, non-toxic in appearance, AA&O x 4 Skin: warm, dry, intact, no rashes or lesions HEENT: NC/AT, PERRL, EOMI, anicteric sclera, conjunctiva without injection, external ear normal to inspection and nontender, nares patent, moist mucus membranes, dentition intact, no oropharyngeal lesions, neck supple, trachea midline, no LAD, no thyromegaly, no JVD Heart: +S1/S2, regular, tachyhcardic, no m/r/g Lungs: equal air entry bilaterally, no rales/rhonchi/wheezes Abd: +BS, soft, ND, laproscopic sites well approximated with no bleeding or dehiscence, no masses/organomegaly/ascites Ext: warm, 2+ pulses in UE/LE bilaterally, no clubbing/cyanosis or edema Neuro: nonfocal, patient AA&O x 4, speech intact, no facial droop, moving all extremities on command with equal strength 5/5 Results & Data Results & Data Vital Signs (Past 12 Hours) Vital Signs Temp Pulse Pulse Resp BP BP Pulse Ox 12/10/24 19:50 36.8 C 103 H 16 127/63 93 12/10/24 19:40 103 H 18 139/68 93 12/10/24 19:30 101 H 18 138/80 96 12/10/24 19:20 96 H 15 140/73 96 12/10/24 19:13 36.7 C 95 H 12 152/78 H 98 12/10/24 17:16 37.1 C 103 H 23 177/112 H 98 12/10/24 16:54 105 H 20 160/107 H 98 12/10/24 14:51 36.1 C L 96 H 20 148/91 H 99 O2 Del Method O2 Flow Rate 12/10/24 19:50 Room Air 12/10/24 19:40 Room Air 12/10/24 19:30 Room Air 12/10/24 19:20 Oxymask 8 12/10/24 19:13 Oxymask 8 12/10/24 17:16 Room Air 12/10/24 16:54 Room Air 12/10/24 14:51 Room Air Laboratory Results Laboratory Results WBC 15.33 K/ul (4.8-10.8) H 12/10/24 15:06 RBC 5.77 M/uL (4.70-6.10) 12/10/24 15:06 Hgb 18.3 g/dl (14.0-18.0) H 12/10/24 15:06 Hct 52.5 % (42.0-52.0) H 12/10/24 15:06 MCV 91.0 fL (80.0-100.0) 12/10/24 15:06 MCH 31.7 pg (25.0-34.0) 12/10/24 15:06 MCHC 34.9 g/dL (32.0-36.0) 12/10/24 15:06 RDW Std Deviation 42.6 fL (36.4-46.3) 12/10/24 15:06 RDW Coeff of Sandra 12.7 % (11.5-14.5) 12/10/24 15:06 Plt Count 284 K/uL (130-400) 12/10/24 15:06 MPV 8.9 fL (9.4-12.4) L 12/10/24 15:06 Immature Gran % (Auto) 0.6 % 12/10/24 15:06 Neut % (Auto) 79.0 % 12/10/24 15:06 Lymph % (Auto) 10.3 % 12/10/24 15:06 [place] % (Auto) 8.6 % 12/10/24 15:06 Eos % (Auto) 1.0 % 12/10/24 15:06 Baso % (Auto) 0.5 % 12/10/24 15:06 Neut # (Auto) 12.11 K/uL (1.40-6.50) H 12/10/24 15:06 Lymph # (Auto) 1.58 K/uL (1.20-3.40) 12/10/24 15:06 [place] # (Auto) 1.32 K/uL (0.11-0.59) H 12/10/24 15:06 Eos # (Auto) 0.15 K/uL (0.00-0.50) 12/10/24 15:06 Baso # (Auto) 0.08 K/uL (0.00-0.20) 12/10/24 15:06 Immature Gran # (Auto) 0.09 K/uL (0.01-0.20) 12/10/24 15:06 Sodium 138 mmol/L (136-145) 12/10/24 15:06 Potassium 4.0 mmol/L (3.5-5.1) 12/10/24 15:06 Chloride 99 mmol/L (98-107) 12/10/24 15:06 Carbon Dioxide 28 mmol/L (21-32) 12/10/24 15:06 Anion Gap 11 (3-11) 12/10/24 15:06 BUN 20 mg/dl (6-23) 12/10/24 15:06 Creatinine 1.18 mg/dl (0.6-1.4) 12/10/24 15:06 Est Cr Clr Drug Dosing Not Reportable 12/10/24 15:06 eGFR 66.38 12/10/24 15:06 BUN/Creatinine Ratio 16.9 (10-20) 12/10/24 15:06 Glucose 85 mg/dl (70-99(Fasting)) 12/10/24 15:06 POC Glucose 172 mg/dl (70-99) H 12/10/24 20:34 Calcium 10.5 mg/dl (8.6-10.3) H 12/10/24 15:06 Total Bilirubin 1.0 mg/dl (0.2-1.0) 12/10/24 15:06 AST 28 U/L (13-39) 12/10/24 15:06 ALT 23 U/L (7-52) 12/10/24 15:06 Alkaline Phosphatase 71 U/L (34-104) 12/10/24 15:06 Total Protein 8.7 gm/dl (6.0-8.3) H 12/10/24 15:06 Albumin 5.3 gm/dl (3.4-5.0) H 12/10/24 15:06 Globulin 3.4 gm/dl (2.5-4.0) 12/10/24 15:06 Albumin/Globulin Ratio 1.6 (0.9-2) 12/10/24 15:06 Lipase 20 U/L (11-82) 12/10/24 15:06 Urine Color Yellow 12/10/24 15:06 Urine Appearance Clear (Clear) 12/10/24 15:06 Urine pH >= 9.0 (4.5-7.5) H 12/10/24 15:06 Ur Specific [place] 1.029 (1.000-1.030) 12/10/24 15:06 Urine Protein 1+ (Negative) H 12/10/24 15:06 Urine Glucose (UA) 1+ (Negative) H 12/10/24 15:06 Urine Ketones 2+ (Negative) H 12/10/24 15:06 Urine Blood Negative (Negative) 12/10/24 15:06 Urine Nitrite Negative (Negative) 12/10/24 15:06 Urine Bilirubin Negative (Negative) 12/10/24 15:06 Urine Urobilinogen Negative (Negative) 12/10/24 15:06 Ur Leukocyte Esterase Negative (Negative) 12/10/24 15:06 Urine WBC (Auto) 0-5 /hpf (0-5) 12/10/24 15:06 Urine RBC (Auto) 0-2 /hpf (0-2) 12/10/24 15:06 U Hyaline Cast (Auto) 0-2 /lpf (0-2) 12/10/24 15:06 U Epithel Cells (Auto) 0-2 /hpf (0-2) 12/10/24 15:06 Urine Bacteria (Auto) None Seen (None Seen) 12/10/24 15:06 Impressions Abdomen/Pelvis CT 12/10/24 15:04 EXAMINATION: CT of the abdomen and pelvis performed after the administration of IV contrast TECHNIQUE: Helical CT images from the lung bases through the symphysis pubis were obtained with contrast. Coronal and sagittal reformatted images were generated at a workstation for further assessment. Dose reduction techniques were achieved by using automatic exposure control and/or adjustment of mA and/or kV according to patient size and/or use of iterative reconstruction technique. COMPARISON: None HISTORY: Abdominal pain FINDINGS: Lower chest: No consolidation. No pleural effusion or pneumothorax. Liver: No suspicious liver lesions. Portal veins appear patent. Gallbladder: No gallstones. No evidence of acute cholecystitis. Spleen: Normal size. Pancreas: No suspicious pancreatic lesions. The pancreatic duct is not dilated. Adrenal glands: No adrenal nodules. Kidneys: No hydronephrosis or obstructing renal stones. Bladder / Pelvic organs: Unremarkable. Bowel: No bowel obstruction. No abnormal bowel wall thickening. The appendix is significantly dilated, measuring 16 mm in diameter, and is fluid-filled, containing numerous calcified prominent stones. Mild surrounding inflammatory fat stranding and free fluid. No focal fluid collection or abscess. No free air. There is reactive enteritis, with fluid throughout the large bowel and distal small bowel loops.. Lymph nodes: No retroperitoneal, mesenteric, or pelvic lymphadenopathy. Peritoneum / Retroperitoneum: No free fluid or air within the abdomen. Vessels: No infrarenal aortic aneurysm. Bones and soft tissues: No suspicious lesion in the bones. IMPRESSION: Acute uncomplicated appendicitis, containing numerous appendicoliths. No free air or abscess. Electronically signed by Moo Tobar 12-10-2024 4:16 PM PG Care Time/CCT Total # of Minutes Spent Total Time Spent with Patient: Total time spent is greater than 50% in coordination of care (as documented) at patient's floor/unit and/or counseling patient: Coding Level of Care Code 71732 IN/OBS CONSULT LVL 3,45M Diagnoses Acute appendicitis K35.80 Type 2 diabetes with nephropathy E11.21 HTN (hypertension) I10 HLD (hyperlipidemia) E78.5 GERD (gastroesophageal reflux disease) K21.9
[2024-12-10] MEDS ORDERED: DEXTROSE 50% 50 ML SYRINGE IV PRN (20:35)
[2024-12-10] MEDS ORDERED: GLUCAGON FOR INJ 1 MG VIAL SQ PRN (20:35)
[2024-12-10] MEDS ORDERED: GLUCOSE 10 TAB/TUBE PO PRN (20:35)
[2024-12-10] MEDS ORDERED: GLUCOSE 40% GEL 15 GM TUBE PO PRN (20:35)
[2024-12-10] MEDS ORDERED: CARBOHYDRATES FOR HYPOGLYCEMIA PO PRN (20:35)
[2024-12-10] MEDS: ACETAMINOPHEN 1,000 MG/100 ML VIAL IV PRN (21:13)
[2024-12-10] MEDS: SODIUM CHLORIDE 0.9% 1,000 ML IV ONE (21:14)
[2024-12-10] MEDS: PIPERACILLIN/TAZOBACTAM 4.5 GM/100 ML BAG IV SCH (21:30)
--- NOTE | 2024-12-10 22:07 | Anesthesiology Progress Note ---
Date of Service December 10, 2024 Anesthesia Post Procedure Vital Signs Vital Signs: Temp Pulse Pulse Resp BP BP Pulse Ox 12/10/24 22:04 37.0 C 105 H 18 144/83 H 92 12/10/24 21:17 37.1 C 115 H 18 141/89 H 91 12/10/24 20:44 36.6 C 106 H 20 134/76 93 12/10/24 19:50 36.8 C 103 H 16 127/63 93 12/10/24 19:40 103 H 18 139/68 93 12/10/24 19:30 101 H 18 138/80 96 12/10/24 19:20 96 H 15 140/73 96 12/10/24 19:13 36.7 C 95 H 12 152/78 H 98 12/10/24 17:16 37.1 C 103 H 23 177/112 H 98 12/10/24 16:54 105 H 20 160/107 H 98 12/10/24 14:51 36.1 C L 96 H 20 148/91 H 99 O2 Del Method O2 Flow Rate 12/10/24 22:04 Room Air 12/10/24 21:17 Room Air 12/10/24 20:44 Room Air 12/10/24 19:50 Room Air 12/10/24 19:40 Room Air 12/10/24 19:30 Room Air 12/10/24 19:20 Oxymask 8 12/10/24 19:13 Oxymask 8 12/10/24 17:16 Room Air 12/10/24 16:54 Room Air 12/10/24 14:51 Room Air Pain Intensity Abdomen: Pain Intensity: 4 Transfer of Care Handoff Completed per policy Notes Mental Status: alert / awake / arousable Patient Amnestic to Procedure: Yes Nausea / Vomiting: adequately controlled Pain: adequately controlled Airway Patency, RR, SpO2: stable & adequate BP & HR: stable & adequate Hydration State: stable & adequate Anesthetic Complications: no major complications apparent
[2024-12-10] MEDS: LANTUS PER UNIT CHARGE SQ SCH (22:31)
[2024-12-10] MEDS: INSULIN ASPART PER UNIT CHARGE SC SCH (22:32)
[2024-12-11] MEDS: MoRPHine SULFATE 4 MG/ML 1 ML CARP\\VIAL IV PRN (03:15)
[2024-12-11 06:39] LABS: Basophils # (auto) 0.02 K/uL (0.00-0.20); Basophils % (auto) 0.1 %; Hematocrit (blood only) 46.1 % (42.0-52.0); Immature Granulocytes # (auto) 0.32 K/uL (0.01-0.20); Immature Granulocytes % (auto) 2.1 %; Lymphocytes # (auto) 0.65 K/uL (1.20-3.40); Lymphocytes % (auto) 4.2 %; Mean Corpuscular Hemoglobin 31.9 pg (25.0-34.0); Mean Corpuscular Hgb Conc 34.7 g/dL (32.0-36.0); Mean Corpuscular Volume 91.8 fL (80.0-100.0); Mean Platelet Volume 9.2 fL (9.4-12.4); Monocytes # (auto) 0.99 K/uL (0.11-0.59); Monocytes % (auto) 6.5 %; Neutrophils # (auto) 13.36 K/uL (1.40-6.50); Neutrophils % (auto) 87.1 %; Platelet Count 262 K/uL (130-400); RDW Coefficient of Variation 12.8 % (11.5-14.5); RDW Standard Deviation 43.5 fL (36.4-46.3); Red Blood Count 5.02 M/uL (4.70-6.10); White Blood Count 15.34 K/ul (4.8-10.8)
[2024-12-11 06:58] LABS: BUN Creatinine Ratio 15.9 (10-20); Calcium 9.3 mg/dl (8.6-10.3); Creatinine Clr Calc Pharmacy 50.4 ml/min; Potassium 4.8 mmol/L (3.5-5.1)
[2024-12-11 07:20] VITALS: BP 120/73; PULSE 94; RESP 16; TEMP 97.7; O2SAT 97
[2024-12-11] MEDS: SCOPOLAMINE 1 MG/72 HR TDSY PATCH TD ONE (07:40)
--- NOTE | 2024-12-11 08:22 | Hospitalist Progress Note ---
Date of Service December 11, 2024 Assessment & Plan (1) Acute appendicitis: (2) Type 2 diabetes with nephropathy: (3) HTN (hypertension): (4) HLD (hyperlipidemia): (5) GERD (gastroesophageal reflux disease): Plan 69-year-old male with history of diabetes, hypertension, hyperlipidemia, CKD and GERD presenting to [facility] with acute generalized abdominal pain. Found to have acute appendicitis status post laparoscopic APPY performed by Dr. Riley 12/10/2024. Procedure well-tolerated, patient is doing well postoperatively. #Acute appendicitisstatus post s/p laparoscopic appendectomy with Dr Riley 12/10 Zosyn IV continued, suspect need to continue PO course at dc given OP report noting small amt purulent fluid in RLQ/pelvis (was irrigated/suctioned out) IVF w/ NSS Pain control, bowel regimen, antiemetics, DVT prophylaxis per primary service Per patient, plans for dc per Dr Riley. Likely continue PO course augmentin. WBC elevated but stable post-op without fever and appears well. Discussed s/sx to return but otherwise medically stable for dc #Diabetes well controlled at baseline w/ recent A1c 6.5 this past month. Compliant w/ home meds: glimepiride, Jardiance, Tresiba and insulin aspart. Home regimen held and placed on lantus 5u BID but can resume home regimen at dc #Tachycardiaheart rate mildly elevated to 150 bpm on admission likely from pain/acute infection above. No hx afib. EKG w/o afib. Mag wnl 2.2 HR improved w/ abx/treatment above and can f/u PCP. No palpitations/SOB/CP reported #Hypertensionpatient with mildly elevated blood pressure in the postoperative period LOSARTAN PLACED ON HOLD FOR AM 5/14 w/ BP 120/73 given Cr slight bump 1.32 and likely could resume in AM 5/15 at dc #Hyperlipidemia - chronic/stable and continued lipitor 40mg daily #GERD PPI once daily continued Dispo: plans for dc per patient per primary service Thank you for allowing hospitalist service to participate in the care of Mr Prakahs. Please call with any questions/concerns Admission and Anticipated Discharge Date Admission Date: December 10, 2024 Supervising Physician Co-Signing Physician Notes The patient was not seen by me. The chart was reviewed. Case discussed with YARELIS Rush. Agree with assessment and plan Subjective Eval this morning, sitting up in chair, NAD. Feels MUCH better, reports having just seen Dr Riley and plans for dc today. Tolerating diet, +flatus. Abdominal incisions look good. Discussed return s/sx if occur at dc but otherwise appears medically stable for dc on PO abx per primary service. Questions/concerns addressed at this time. Physical Exam 2 Physical Exam: General: 69yo male sitting up in chair, looks well, NAD HEENT: head atraumatic, normocephalic, mmm, trachea midline Resp: even/unlabored, no wheezing/rales, on room air CV: RRR, no significant m/r/g, no pitting edema GI: +BS throughout, soft but slight distension but no overt tenderness/guarding, lap sites look good, no erythema/drainage, some crusting to RLQ site no hamlin MSK/Neuro: nonfocal , not confused, answering questions appropriately, moves all extremities Psych: AOx3, cooperative and pleasant Results & Data Results & Data Vital Signs (Past 12 Hours) Vital Signs Temp Pulse Resp BP Pulse Ox O2 Del Method 12/11/24 07:19 36.5 C 94 H 16 120/73 97 Room Air 12/11/24 04:00 36.8 C 83 18 100/56 L 93 Room Air 12/10/24 22:04 37.0 C 105 H 18 144/83 H 92 Room Air 12/10/24 21:17 37.1 C 115 H 18 141/89 H 91 Room Air 12/10/24 20:44 36.6 C 106 H 20 134/76 93 Room Air Laboratory Results 12/11/24 06:22 12/11/24 06:22 PG Care Time/CCT Total # of Minutes Spent Total Time Spent with Patient: Total time spent is greater than 50% in coordination of care (as documented) at patient's floor/unit and/or counseling patient: Coding Level of Care Code 44926 SUB INP/OBS CARE 2/35MIN Diagnoses Acute appendicitis K35.80 Type 2 diabetes with nephropathy E11.21 HTN (hypertension) I10 HLD (hyperlipidemia) E78.5 GERD (gastroesophageal reflux disease) K21.9
[2024-12-11] MEDS: MULTIVITAMIN TAB PO SCH (08:30)
[2024-12-11] MEDS: CHOLECALCIFEROL 25 MCG (1000 UNITS) TAB PO SCH (08:30)
[2024-12-11] MEDS: DULoxetine HCL 60 MG CAP PO SCH (08:31)
[2024-12-11] MEDS: ATORVASTATIN 40 MG TAB PO SCH (08:31)
[2024-12-11] MEDS: ASPIRIN 81 MG ECTAB PO SCH (08:31)
[2024-12-11] MEDS: PANTOprazole 40 MG TAB PO SCH (08:31)
[2024-12-11] MEDS ORDERED: LOSARTAN POTASSIUM 50 MG TAB PO SCH (09:00)
[2024-12-11 09:42] LABS: Magnesium 2.2 mg/dl (1.7-2.4)
--- NOTE | 2024-12-11 11:09 | Surgery Progress Note ---
Date of Service December 11, 2024 Assessment & Plan (1) S/P laparoscopic appendectomy: Plan: Doing well. Discussed progression of his activities what he may and may not do. Okay for discharge. Instructions given. Admission and Anticipated Discharge Date Admission Date: December 10, 2024 Subjective Patient seen. Feeling well. Much better than yesterday. Would like to go home Physical Exam Physical Exam: Alert no acute distress Abdomen is soft with expected postoperative incisional tenderness Results & Data Vital Signs (Past 12 Hours) Vital Signs Temp Pulse Resp BP Pulse Ox O2 Del Method 12/11/24 07:19 36.5 C 94 H 16 120/73 97 Room Air 12/11/24 04:00 36.8 C 83 18 100/56 L 93 Room Air PG Care Time/CCT Total # of Minutes Spent Total Time Spent with Patient: Total time spent is greater than 50% in coordination of care (as documented) at patient's floor/unit and/or counseling patient: Coding Level of Care Code 97428 Post Operative Follow-Up Diagnoses S/P laparoscopic appendectomy Z90.49
--- NOTE | 2024-12-11 14:12 | Electrocardiogram Report ---
Test Reason : Blood Pressure : */* mmHG Vent. Rate : 109 BPM Atrial Rate : 109 BPM P-R Int : 188 ms QRS Dur : 124 ms QT Int : 390 ms P-R-T Axes : 62 -61 77 degrees QTcB Int : 525 ms Sinus tachycardia Right bundle branch block Left anterior fascicular block Poor R wave progression, consider anterior MN vs. lead placement vs. LVH Abnormal ECG No previous ECGs available Confirmed by Moo Reyes ([id number]) on 12/11/2024 2:12:15 PM Referred By: REFERRED SELF Confirmed By: Moo Reyes
--- NOTE | 2024-12-13 13:39 | Discharge Summary ---
Date of Service December 11, 2024 Admission HPI Per Admitting Provider This is a 69y M with a PMH of HTN, HLD, DM2, mild cognitive impairment CKD, who presents to the [facility] ED on 12/10/24 with complaints of abdominal pain. Patient states it started last night around 7-8pm and it was generalized. He thought it was related to indigestion. Unfortunatelyhis abdominal pain continued to worsen and was associated with nausea and became worse on the right lower side. He came into the ER today for further evaluation. A CT a/p was obtained that revealed uncomplicated appendicitis, containing numerous appendicoliths. No free air or abscess. He reports a hernia repair when he was 10 weeks old which sounds like bilateral inguinal hernia repair. No abdominal surgery since then. He has chronic back pain. He denies CP/SOB, fevers/chills, no emesis. Had some lightheadedness on arrival he wasn't sure if related to dehydration or low sugars. Last ate a small amount of ramen noodles around 10am. Principal Diagnosis acute appendicitis Discharge Exam awake, no distress Respiratory room air Gastrointestinal (Abdomen) Percussion/Palpation: + abdomen tender (expected ellen incisional discomfort to palpation) and abdomen soft Discharge Data Allergies Allergy/AdvReac Type Severity Reaction Status Date / Time cyclobenzaprine Allergy Unknown Verified 12/10/24 18:31 erythromycin base Allergy Hives Verified 12/10/24 18:31 Sulfa (Sulfonamide Allergy Hives Verified 12/10/24 18:31 Antibiotics) codeine AdvReac Dizziness Verified 12/10/24 18:31 NSAIDS (Non-Steroidal AdvReac Nausea Verified 12/10/24 18:31 Anti-Inflamma tramadol AdvReac Dizziness Verified 12/10/24 18:31 Consultations 12/10/24 16:34 Consult General Surgery Routine 12/10/24 20:35 Consult Hospitalist Routine Procedures Performed Operation Date: 12/10/24 14:00 Actual Procedures p Laparoscopic Appendectomy(Not Applicable) - Truman Riley, Ordered Studies 12/10/24 15:04 CT Abd and Pelvis [CT abd pelvis IV con only] Stat Hospital Course (1) Acute appendicitis: This is a 69yM who presented to the [facility] ED on 12/10 with abdominal pain. Workup in the ED showed a WBC of [address] a/p concerning for acute appendicitis with appendicoliths. The patient was tender to palpation in the RLQ. Patient made NPO with IVF and booked for the OR. On 12/10 the patient went to the OR with Dr. Riley for a laparoscopic appendectomy. The patient tolerated the procedure well, see operative report for full details. Post operatively the patient's diet was advanced, pain managed on prn meds, and incisions clean/dry/intact. The hospitalists were consulted for assistance with medical management during his stay. On POD#1 the patient was deemed stable for discharge to home. Total Time Total Time Spent Total Time Spent (In Minutes): 10 Discharge Plan Discharge Items Patient Disposition: Home - Self-Care Reason For Visit: APPY Discharge Diagnosis: laparoscopic appendectomy Condition on Discharge: Fair Activity: Per Instructions section Lifting: No more than 10 pounds Bathing Comment: may shower; no soaking in tubs/pools x 2 weeks Exercise/Sports: Wait until after follow-up appointment Driving/Machine Use: no driving while taking narcotics for pain Non-emergency contact: Surgeon Call non-emergency contact if: you have any medication questions, your symptoms worsen, your pain is worsening, you have a fever, your temperature is above 101.5, your wound has increased redness, your wound has increased drainage and your wound pain has increased Follow-up/Referrals: Truman Riley DO [Surgeon] - 12/25/24 10:45 am (Hospital follow up on December 25 at 10:45 am.) Channing Pino DO [Primary Care Provider] - Diet: Regular Addtl Attending Provider Instructions: SPECIAL CARE INSTRUCTIONS: * You have skin glue over your incisions called dermabond. you may shower with this on. It will tend to dissolve and fall off within a couple weeks. Do not pick at the skin glue * You may shower . NO soaking in pools or baths for 2 weeks * No lifting greater than 10lbs. No strenuous exercise until cleared by surgeon. Light walking is accepted. * No driving while taking narcotic pain medication; wait at least 3 days * No drinking alcohol while taking narcotic pain medication * May use Ibuprofen/Tylenol over the counter for pain as tolerated. Do not exceed 3grams of Tylenol per 24 hours * Expect some swelling and bruising. * Diet- you may resume your regular diet Call your doctor if: * Temperature above 101 degrees, nausea/vomiting, fever/chills * Pain not relieved by pain medicine ordered * There is increased drainage or redness from any incision * You have any unanswered questions or concerns [phone]. * You may resume your home blood pressure medication Losartan, tomorrow 12/12/24 FOLLOW UP VISIT: If not already scheduled, please call the office for a follow-up visit. Office Pending Studies at Discharge: Yes Studies:: surgical pathology Stand-Alone Forms: My [facility] [place], Smoking Cessation Medications and DC Order Prescriptions: New oxycodone-acetaminophen [Percocet] 5-325 mg tablet 1 - 2 tab PO .q4-6h PRN (Reason: pain, for initial therapy, max 6 tabs per day) Qty: 15 0RF Continued oxycodone-acetaminophen 5-325 mg tablet 1 tab PO Q12H PRN (Reason: pain) Qty: 60 0RF Jardiance 10 mg tablet 10 mg PO DAILY Qty: 30 2RF aspirin 81 mg tablet,delayed release (DR/EC) 81 mg PO DAILY magnesium citrate 1,800 - 2,200 mg PO DAILY PRN (Reason: when low) multivitamin Tablet 1 tab PO DAILY atorvastatin 40 mg tablet 40 mg PO DAILY Qty: 90 3RF glimepiride 4 mg tablet 4 mg PO DAILY Qty: 90 3RF omeprazole 40 mg capsule,delayed release(DR/EC) 40 mg PO DAILY Qty: 90 3RF cholecalciferol (vitamin D3) 50 mcg (2,000 unit) capsule 100 mcg PO DAILY insulin aspart U-100 100 unit/mL (3 mL) insulin pen 10 unit subcut TID Rx Instructions: 4 g carb - 1 Unit of insulin aspart duloxetine 60 mg capsule,delayed release(DR/EC) 60 mg PO DAILY Qty: 90 3RF Held losartan 100 mg tablet 100 mg PO DAILY Qty: 90 3RF Hold Instructions: Resume on 12/12/24. No Action insulin degludec [Tresiba FlexTouch U-100] 100 unit/mL (3 mL) insulin pen 10 unit subcut DAILY Qty: 15 1RF insulin degludec [Tresiba FlexTouch U-100] 100 unit/mL (3 mL) insulin pen 10 unit subcut DAILY Qty: 15 3RF Discharge Orders: Discharge Order (Routine); Ordered 12/11/24 Ordered By: Sara Whiting Admission Data Admit Date/Time: 12/10/24 19:05 Attending Provider: Truman Riley Admit Provider: Truman Riley Primary Care Provider: Channing Pino Other Providers: Jan Clark; Claudia Casillas Other Interventions: Discharge Summary Assessment (RN) Last Done: 12/11/24 10:37 Coding Level of Care Code 87794 IN/OBS DISCH 30 MIN/LESS Diagnoses Acute appendicitis K35.80
== END 2024-12-11 11:43 | disposition home or self-care (01) | DRG 399 ==
LOC: ED 14:49 → OR 17:00 → 3N 19:05